=== PATIENT | male | born 1990 | race Two or more races ===

== ENCOUNTER 2018-12-06 22:47 | Emergency (ER) | payer OTHER ==
[2018-12-06] MEDS ORDERED: KETOROLAC 15 MG/1 ML SDV IVP ONE (23:35)
[2018-12-06] MEDS ORDERED: NS 1,000 ML IV ONE (23:35)
--- NOTE | 2018-12-06 23:49 | EDPHY ---
H & P Stated Complaint: SEVERE THROAT PAIN, SWOLLEN R TONSEL, RECENT STREP Time Seen by Provider: 12/06/18 23:19 HPI/ROS: Chief Complaint: Sore throat HPI: 28-year-old male presenting with 24 hr of worsening throat pain with swelling on the right side of his throat. It hurts to speak. It hurts to swallow but he is able to swallow. No fevers or chills. No history of similar symptoms in the past. No cough. No nausea or vomiting. No skin rash. ROS: 10 systems were reviewed and were negative except those elements noted in the HPI. PMH: Denies Social History: No smoking, no alcohol, no recreational drug use Family History: non-contributory Physical Exam: Gen: Awake, Alert, No Distress HEENT: Nose: no rhinorrhea Eyes: PERRLA, EOMI Mouth: Moist mucosa right-sided oropharyngeal and peritonsillar erythema with swelling, mild uvular shift, no pointing, no exudate Neck: Supple, no JVD, moderate cervical lymphadenopathy Chest: nontender, lungs clear to auscultation Heart: S1, S2 normal, no murmur Abd: Soft, non-tender, no guarding Back: no CVA tenderness, no midline tenderness Ext: no edema, non-tender Skin: no rash Neuro: CN II-XII intact, Sensation grossly intact, Strength 5/5 in bilateral upper and lower extremities - Personal History Current Tetanus/Diphtheria Vaccine: Unsure Current Tetanus Diphtheria and Acellular Pertussis (TDAP): Unsure - Medical/Surgical History Hx Asthma: No Hx Chronic Respiratory Disease: No Hx Diabetes: No Hx Cardiac Disease: No Hx Renal Disease: No Hx Cirrhosis: No Hx Alcoholism: No Hx HIV/AIDS: No Hx Splenectomy or Spleen Trauma: No Other PMH: DENIES - Social History Smoking Status: Current every day smoker Constitutional: Initial Vital Signs Temperature (C) 37.2 C 12/06/18 22:53 Heart Rate 86 12/06/18 22:53 Respiratory Rate 18 12/06/18 22:53 Blood Pressure 128/82 H 12/06/18 22:53 O2 Sat (%) 97 12/06/18 22:53 O2 Delivery Mode Room Air Allergies/Adverse Reactions: No Known Allergies Allergy (Unverified 12/06/18 22:55) Home Medications: Medication Instructions Recorded Ibuprofen [Advil] 100 mg PO 12/06/18 Clindamycin HCl [Clindamycin] 300 mg PO QID #40 cap 12/07/18 Medical Decision Making Procedures: Procedure: Peritonsillar Abscess drainage. The patient's abscess was located on the right peritonsillar bed. I obtained verbal consent from the patient to drain the abscess who was informed about the possibility of bleeding and pain. Patient was anesthetized with viscous lidocaine, topical Hurricaine spray and 1% lidocaine infiltration. The abscess was incised with 18 gauge spinal needle and 3 mL of purulent drainage was aspirated. The patient tolerated the procedure well. The procedure was performed by myself. ED Course/Re-evaluation: Patient is feeling much better after abscess drainage. I have ordered IV clindamycin 600 mg. I have also ordered IV Decadron. Patient is also get IV Toradol. I have discussed with Dr. Asad Peck, ear nose and throat. He agrees with the plan for continuing clindamycin. He would like to see the patient in follow-up in several days. Call sooner if symptoms worsen. The patient is tolerating p. O.. His breathing is much easier. His voice has improved dramatically. - Data Points Laboratory Results: Laboratory Results 12/06/18 23:41 12/06/18 23:41 12/06/18 12/06/18 12/06/18 23:46 23:45 23:41 WBC RBC Hgb POC Hgb 15.6 gm/dL gm/dL (13.7-17.5) Hct POC Hct 46 % % (40-51) MCV MCH MCHC RDW Plt Count MPV Neut % (Auto) Lymph % (Auto) Kimble % (Auto) Eos % (Auto) Baso % (Auto) Nucleat RBC Rel Count Absolute Neuts (auto) Absolute Lymphs (auto) Absolute Monos (auto) Absolute Eos (auto) Absolute Basos (auto) Absolute Nucleated RBC Immature Gran % Immature Gran # POC Sodium 141 mEq/L mEq/L (135-145) Sodium 138 mEq/L mEq/L (135-145) POC Potassium 4.0 mEq/L mEq/L (3.3-5.0) Potassium 4.3 mEq/L mEq/L (3.5-5.2) POC Chloride 101 mEq/L mEq/L (97-110) Chloride 104 mEq/L mEq/L (97-110) Carbon Dioxide 26 mEq/l mEq/l (22-31) Anion Gap 8 mEq/L mEq/L (6-14) POC BUN 13 mg/dL mg/dL (7-23) BUN 14 mg/dL mg/dL (7-23) Creatinine 0.9 mg/dL mg/dL (0.7-1.3) POC Creatinine 1.0 mg/dL mg/dL (0.7-1.3) Estimated GFR > 60 Glucose 96 mg/dL mg/dL (70-100) POC Glucose 99 mg/dL mg/dL (70-100) Calcium 8.8 mg/dL mg/dL (8.5-10.4) Monoscreen NEGATIVE (NEGATIVE) 12/06/18 23:41 WBC 16.89 10^3/uL H 10^3/uL (3.80-9.50) RBC 5.05 10^6/uL 10^6/uL (4.40-6.38) Hgb 14.1 g/dL g/dL (13.7-17.5) POC Hgb Hct 43.4 % % (40.0-51.0) POC Hct MCV 85.9 fL fL (81.5-99.8) MCH 27.9 pg pg (27.9-34.1) MCHC 32.5 g/dL g/dL (32.4-36.7) RDW 12.8 % % (11.5-15.2) Plt Count 375 10^3/uL 10^3/uL (150-400) MPV 9.2 fL fL (8.7-11.7) Neut % (Auto) 83.3 % H % (39.3-74.2) Lymph % (Auto) 7.3 % L % (15.0-45.0) Kimble % (Auto) 7.6 % % (4.5-13.0) Eos % (Auto) 1.0 % % (0.6-7.6) Baso % (Auto) 0.4 % % (0.3-1.7) Nucleat RBC Rel Count 0.0 % % (0.0-0.2) Absolute Neuts (auto) 14.07 10^3/uL H 10^3/uL (1.70-6.50) Absolute Lymphs (auto) 1.23 10^3/uL 10^3/uL (1.00-3.00) Absolute Monos (auto) 1.28 10^3/uL H 10^3/uL (0.30-0.80) Absolute Eos (auto) 0.17 10^3/uL 10^3/uL (0.03-0.40) Absolute Basos (auto) 0.07 10^3/uL 10^3/uL (0.02-0.10) Absolute Nucleated RBC 0.00 10^3/uL 10^3/uL (0-0.01) Immature Gran % 0.4 % % (0.0-1.1) Immature Gran # 0.07 10^3/uL 10^3/uL (0.00-0.10) POC Sodium Sodium POC Potassium Potassium POC Chloride Chloride Carbon Dioxide Anion Gap POC BUN BUN Creatinine POC Creatinine Estimated GFR Glucose POC Glucose Calcium Monoscreen Medications Given: Discontinued Medications Benzocaine (Hurricaine [place]) 1 each MM EDNOW ONE Stop: 12/07/18 00:18 Last Admin: 12/07/18 00:20 Dose: 1 each Dexamethasone (Decadron Injection) 10 mg IVP EDNOW ONE Stop: 12/07/18 00:29 Last Admin: 12/07/18 00:58 Dose: 10 mg Sodium Chloride (Ns) 1,000 mls @ 0 mls/hr IV ONCE ONE; Wide Open PRN Reason: Protocol Stop: 12/06/18 23:36 Last Admin: 12/06/18 23:44 Dose: 1,000 mls Clindamycin Phosphate/Dextrose (Cleocin 600 Mg (Premix)) 50 mls @ 100 mls/hr IV EDNOW ONE PRN Reason: Protocol Stop: 12/07/18 00:57 Last Admin: 12/07/18 00:58 Dose: 50 mls Ketorolac Tromethamine (Toradol) 15 mg IVP EDNOW ONE Stop: 12/06/18 23:36 Last Admin: 12/06/18 23:44 Dose: 15 mg Ketorolac Tromethamine (Toradol) 15 mg IVP EDNOW ONE Stop: 12/07/18 01:08 Last Admin: 12/07/18 01:14 Dose: 15 mg Lidocaine (Lidocaine 2% Viscous) 5 ml PO EDNOW ONE Stop: 12/07/18 00:18 Last Admin: 12/07/18 00:19 Dose: 15 ml Point of Care Test Results: Chemistry 12/06/18 23:46 POC Sodium 141 mEq/L mEq/L (135-145) POC Potassium 4.0 mEq/L mEq/L (3.3-5.0) POC Chloride 101 mEq/L mEq/L (97-110) POC BUN 13 mg/dL mg/dL (7-23) POC Creatinine 1.0 mg/dL mg/dL (0.7-1.3) POC Glucose 99 mg/dL mg/dL (70-100) ISTAT H&H 12/06/18 23:46 POC Hgb 15.6 gm/dL gm/dL (13.7-17.5) POC Hct 46 % % (40-51) Departure - Departure Disposition: Home, Routine, Self-Care Clinical Impression: Peritonsillar abscess Condition: Good Instructions: Peritonsillar Abscess (ED) Additional Instructions: Please take your full course of antibiotics. Follow-up with Dr. Peck, Ear Nose and Throat, on Tuesday or Tuesday for recheck. Call later today to make an appointment. Take ibuprofen, 600 mg every 8 hr. You may alternate with acetaminophen, 1000 mg every 8 hr. Return to the emergency depart for increasing pain, worsening difficulty breathing, difficulty swallowing, fevers or chills, or any other concerns. Referrals: Asad Peck MD [Medical Doctor] - As per Instructions Prescriptions: Clindamycin HCl [Clindamycin] 300 mg PO QID #40 cap
[2018-12-06] MEDS ORDERED: IOPAMIDOL (ISOVUE 370) 100 ML BTL IV ONE (23:54)
[2018-12-06 23:55] LABS: PLATELET COUNT 375 10^3/uL (150-400)
[2018-12-07] MEDS ORDERED: LIDOCAINE 2% VISCOUS 15 ML UDCUP ONE (00:15)
[2018-12-07] MEDS ORDERED: BENZOCAINE UNIT DOSE SPRAY HURRICAINE MM ONE ×2 (00:15→00:17)
[2018-12-07] MEDS ORDERED: LIDOCAINE 2% VISCOUS 15 ML UDCUP PO ONE (00:17)
[2018-12-07] MEDS ORDERED: CLINDAMYCIN 600 MG/DEXTROSE 50 ML IV ONE (00:28)
[2018-12-07] MEDS ORDERED: DEXAMETHASONE 10 MG/ML VIAL IVP ONE (00:28)
[2018-12-07] MEDS ORDERED: KETOROLAC 15 MG/1 ML SDV IVP ONE (01:07)
[2018-12-07 02:22] VITALS: BP 120/82
== END 2018-12-07 02:27 | disposition home or self-care (01) ==
PROC: 0C9P3ZZ Drainage of Tonsils, Percutaneous Approach (ICD-10-PCS; principal; 2018-12-06)
DX: J36 Peritonsillar abscess (principal); E86.9 Volume depletion, unspecified
CPT/HCPCS: 82435-PO; 82565-PO; 82947-PO; 84132-PO; 84295-PO; 84520-PO; 85014-ER; 96365; J1100; J1885; Q9967